=== PATIENT | male | born 1935 | race Caucasian/White ===

== ENCOUNTER 2017-10-04 09:29 | Inpatient (IN) | payer OTHER, BC ==
[~2017-10-04] VITALS: Ht 175.3 cm; Wt 73.8 kg
--- NOTE | ~2017-10-04 | PLAN ---
[facility] [place] [address] REHAB UNIT PLAN OF CARE Name: DEVI HARRISON Room #: 506-1 ADM IN M.R.#: [id number] Admission: 10/04/17 Attend Phys: Masoud Garcia MD Discharge: Date of : 36 Report #: [id number] THIS REPORT FOR: //name// CC: Masoud Garcia [facility] unknown DATE OF SERVICE: 10/06/2017 SUBJECTIVE: The patient is seen back today in followup. He was in no distress. Temperature 36.6, pulse 97, respirations 20, blood pressure 112/66. His diabetes is being monitored, his Mchugh catheter drainage. He has been working in therapies. Transfers are max assist. Bed wheelchair mod assist utilizing the sliding board. In occupational therapy, lower body dressing is max assist. He has mild comprehensive deficits. ASSESSMENT: 1. Right below knee amputation for osteomyelitis. 2. Diabetic peripheral neuropathy. 3. Diabetes mellitus type 2. 4. Chronic Mchugh catheter usage premorbidly. 5. Hypertension. 6. Hyperlipidemia. 7. Depression, on Cymbalta. 8. Deep vein thrombosis prophylaxis, on Lovenox. PLAN: The overall plan of care is based on the preadmission screen, post-admission physician evaluation and information garnered from therapy assessments. 1. Estimated length of stay is probably at least 2-3 weeks pending progress. 2. Medical prognosis is reasonably good. 3. Anticipated interventions includes the interdisciplinary acute inpatient rehabilitation program with the goal maximizing his functional independence, he can hopefully return back to his prior living situation. PT, OT and speech are involved as well as rehabilitation nursing assisting regarding medication management, skin care prophylaxis, bowel and bladder issues and nursing education. We will have case management involved as well as the rehab therapy team and the furniture sales consultant physicians. 4. Anticipated functional outcomes would be to hopefully get him modified independent at least at the walker level, so that he can return back to the home setting. 5. Discharge destination would be back to the house with his daughter. [address] [address] REHAB UNIT PLAN OF CARE Name: ZENA HARRISONL Room #: 506-1 ADM IN M.R.#: [id number] Admission: 10/04/17 Attend Phys: Masoud Garcia MD Discharge: Date of : 36 Report #: [id number] 6. Expected therapy by discipline includes PT, OT and speech 1 hour per day each five days a week throughout the duration of the acute inpatient stay. <ELECTRONICALLY SIGNED> By: Masoud Garcia MD 10/10/17 1510 [id number] Masoud Garcia MD /PMT
--- NOTE | ~2017-10-04 | HC ---
[facility] [place] [address] CONSULTATION Name: DEVI HARRISON Room #: 506-1 ADM IN M.R.#: [id number] Admission: 10/04/17 Attend Phys: Masoud Garcia MD Discharge: Date of : 36 Report #: [id number] THIS REPORT FOR: //name// CC: Masoud Garcia FAM unknown NEUROPSYCHOLOGY CONSULTATION AGE: 82. LOCATION: Admitted to the rehabilitation unit on 10/04/2017. HELPER MARBLE FINISHER: Masoud Kirk, PhD REASON FOR CONSULTATION: To provide information in support of planning of a comprehensive rehabilitation program. HISTORY OF PRESENT ILLNESS: The patient was hospitalized recently at [facility] due to failure to heal of wounds on his right foot. He subsequently underwent a [id number] amputation on 09/27/2017, and on 10/04/2017 was admitted to the rehabilitation unit at [place] for comprehensive rehabilitation. PROCEDURES: Included a review of records, consultation with unit staff, mini mental status examination and clinical interview, FINDINGS: When interviewed, the patient was found to be an alert, pleasant gentleman who readily agreed to speak with this resume writer. He was aware of his current situation and reported himself to be in relatively good spirits, stating that he is sorry to have lost his leg, but believes that he just has to "go with it." The patient's memory was noted to be very spotty. He remembered that his 3 years ago, but when trying to state what she of, he only was able to point at his head. He remembered that he was in the [employer] as a young man for a specific number of years, months, and days, but could not recall the name of the company that he worked for, for the last 18 years of his career. He was able to recall that he has 2 daughters, but could not state the exact number of grandchildren, which he has. On the mini mental status examination, he scored in the severely impaired range of mental status, with impaired recall and limited orientation. That being said, his plan to return to his daughter's home where he has extensive family, social and practical support appears to be realistic, as he has minimal demand for managing his affairs independently in his living setting. CONCLUSION AND RECOMMENDATIONS: The claimant appears to have some level of dementia, though general awareness of his situation and surroundings, and he is [facility] [address] [place] [address] CONSULTATION Name: DEVI HARRISON Room #: 506-1 [facility] IN M.R.#: [id number] Admission: 10/04/17 Attend Phys: Masoud Garcia MD Discharge: Date of : 36 Report #: [id number] outspokenly committed to his hope of returning home to live with family. It is recommended that compensation for memory issues, such as writing down things he wishes to follow up on our recall be addressed. <ELECTRONICALLY SIGNED> By: Masoud Kirk, PhD 10/17/17 1242 [id number] Masoud Kirk PhD /karlo
--- NOTE | ~2017-10-04 | H ---
[facility] [place] [address] HISTORY AND PHYSICAL Name: DEVI HARRISON Room #: 506-1 ADM IN M.R.#: [id number] Admission: 10/04/17 Attend Phys: Masoud Garcia MD Discharge: Date of : 36 Report #: [id number] THIS REPORT FOR: //name// CC: Masoud Garcia [facility] unknown DATE OF SERVICE: 10/05/2017 HISTORY AND PHYSICAL/POST-ADMISSION PHYSICIAN EVALUATION HISTORY OF PRESENT ILLNESS: The patient is an 82-year-old male who was admitted from [facility] status post right below-knee amputation for osteomyelitis. He was originally admitted to [facility] with cellulitis. He was continued on IV antibiotics and ended up undergoing a below-knee amputation. Per my review this occurred on 09/27/2017. The patient was monitored postoperatively for blood pressure and blood sugar issues, gradually stabilized and was felt to be ready for transfer for acute in-hospital inpatient rehabilitation. We are now admitting him to the inpatient rehabilitation posey at [facility]. PAST MEDICAL HISTORY: Includes hypertension, hyperlipidemia, peripheral arterial disease, osteoarthritis, BPH, chronic use of Mchugh with previous UTI, diabetic neuropathy. He has type 2 diabetes mellitus. MEDICATIONS: Please see the full medication list. Each of these was individually reconciled and includes vitamins, herbals, and supplements. ALLERGIES: LISTED INFLUENZA VACCINE. FAMILY HISTORY: Positive for congestive heart failure, dementia, and Parkinson's disease. SOCIAL HISTORY: He lives with his daughter in a house. They already have a ramp built. Per his history, there bathroom is accessible. The daughter and her household apparently do a lot of posey work during the summer. REVIEW OF SYSTEMS: Did not offer any current complaints of chest pain, shortness of breath, abdominal discomfort. No focal extremity pain complaints. He does have some distal lower extremity numbness, but was uncertain regarding the diagnosis of a neuropathy, although it is noted in his records. Notes he has had the Mchugh catheter indwelling for more than a year and apparently has problems with incontinence without it. PHYSICAL EXAMINATION: GENERAL: He is a pleasant 82-year-old male in no obvious distress. VITAL SIGNS: Last recorded temperature is 97.5, pulse 88, respirations 16, [facility] [address] [place] [address] HISTORY AND PHYSICAL Name: DEVI HARRISON Room #: [address] [place] [address] IN .R.#: [id number] Admission: 10/04/17 Attend Phys: Masoud Garcia MD Discharge: Date of : 36 Report #: [id number] blood pressure 93/53. He is alert, oriented, appears to be a good historian. HEENT: Facies are symmetric. CHEST: Sounded clear to auscultation. CARDIOVASCULAR: Regular rate and rhythm. ABDOMEN: Bowel sounds positive, nontender. GENITOURINARY AND RECTAL: Deferred. EXTREMITIES: He has functional range of motion of both upper extremities. It appears to have some hand intrinsic wasting, but otherwise I would note that strength is probably a grade 4+/5. DTRs are trace to 1. In his lower extremities, he has the right below-knee amputation. Dressing appears dry. He has good extension of the knee. He is able to lift that leg up with proximal strength probably at least to grade 3+ to 4-/5. Left lower extremity reveals functional range of motion, no breakdown that I can see over the foot or ankle. Strength is a grade 4 to 4-/5. DTRs are trace to 1. No focal calf swelling. He does have decreased distal sensation consistent with his noted peripheral neuropathy. He has been mod assist with basic transfers prior to coming to the rehab posey. ASSESSMENT: An 82-year-old male with the following problem list: 1. Right below knee amputation for osteomyelitis. 2. Diabetic peripheral neuropathy. 3. Diabetes mellitus type 2. 4. Chronic Mchugh catheter usage premorbidly. 5. Hypertension. 6. Hyperlipidemia. 7. Depression. He is on Cymbalta. 8. Deep vein thrombosis. He is on Lovenox. 9. Functional mobility and ADL deficits. PLAN: The patient is admitted for acute in-hospital inpatient rehabilitation. From a postadmission physician evaluation perspective, there are no relevant changes since the preadmission screening. Please see the above review of prior and current medical and functional conditions and comorbidities. Please see the patient's previous and current functional status. As far as risk of complications, he has the multiple medical comorbidities as noted above. The initial plan of care involves the interdisciplinary acute inpatient rehabilitation program with the goal of maximizing the patient's functional independence so that he can hopefully return back to his prior living situation. Measurable functional goals would be for him to become modified independent with transfers, mobility, ADLs, at least at the wheelchair/walker level, so he can return back home with family. Prognosis is reasonably good with estimated length of stay probably at least 10 days to 2 weeks and likely longer depending upon his functional deficits and gains. The patient meets diagnostic criteria for an acute in-hospital inpatient rehabilitation stay. He meets medical necessity criteria and we will have the [address] [address] HISTORY AND PHYSICAL Name: DEVI HARRISON Room #: 506-1 ADM IN M.R.#: [id number] Admission: 10/04/17 Attend Phys: Masoud Garcia MD Discharge: Date of : 36 Report #: [id number] professional services consultant physicians continue to follow. He does have the tolerance for therapies and has appropriate discharge goals back to the home setting. <ELECTRONICALLY SIGNED> By: Masoud Garcia MD 10/10/17 1510 [id number] Masoud Garcia MD /[facility]
[2017-10-04 14:00] VITALS: BP 96/51
[2017-10-04] MEDS ORDERED: BENADRYL ITCH28.3 G1 TOP (14:37)
[2017-10-04] MEDS ORDERED: CYMBALTA60 MG PO (14:38)
[2017-10-04] MEDS ORDERED: ENOXAPARIN40 MG/0.1 SUBQ (14:40)
[2017-10-04] MEDS ORDERED: HYDROCODONE-AP1 EAC6 PO (14:41)
[2017-10-04] MEDS ORDERED: NOVOLOG100 UNIT/1 SUBQ ×2 (14:43→14:45)
[2017-10-04] MEDS ORDERED: LEVEMIR SUBQ (14:47)
[2017-10-04] MEDS ORDERED: LEVEMIR100 UNIT/1 SUBQ (14:49)
[2017-10-04] MEDS ORDERED: PROBIOTIC1 EAC1 PO (14:50)
[2017-10-04] MEDS ORDERED: LISINOPRIL10 MG PO (14:51)
[2017-10-04] MEDS ORDERED: METOPROLOL TART25 MG PO (14:53)
[2017-10-04] MEDS ORDERED: MIDODRINE HCL 55 M1 PO (14:55)
[2017-10-04] MEDS ORDERED: AMBIEN 5 MG TABL5 M1 PO (14:56)
[2017-10-04] MEDS ORDERED: LIPITOR10 MG PO (14:59)
[2017-10-04] MEDS ORDERED: AMARYL4 MG PO (14:59)
[2017-10-04] MEDS ORDERED: ALBUTEROL2.5 MG/31 INH (15:02)
[2017-10-04] MEDS ORDERED: ASPIRIN81 M2 PO (15:04)
[2017-10-04 16:39] LABS: URINE BILIRUBIN NEGATIVE (Negative); URINE BLOOD TRACE (Negative); URINE CLARITY CLEAR; URINE COLOR YELLOW; URINE GLUCOSE-RANDOM* NEGATIVE (Negative); URINE KETONES NEGATIVE (Negative); URINE NITRITE-REFLEX NEGATIVE (Negative); URINE PROTEIN (DIPSTICK) NEGATIVE (Negative); URINE UROBILINOGEN 0.2 E.U./dl (0.2-1.0)
[2017-10-04 16:42] LABS: URINE LEUKOCYTES-REFLEX 2+ (Negative)
[2017-10-04 16:51] LABS: CASTS None Seen /LPF (None Seen); CRYSTALS None Seen /LPF (None Seen); SQUAMOUS None Seen /LPF (0-3); URINE RBC 0-2 Rare /HPF (0-2); YEAST-REFLEX Present (None Seen)
[2017-10-04 16:52] LABS: BACTERIA-REFLEX 1-9 Few /HPF (None Seen)
[2017-10-04 20:02] VITALS: BP 93/53
[2017-10-05 06:56] LABS: HEMATOCRIT 26.3 % (42.0-52.0); HEMOGLOBIN 8.7 gm/dL (14.0-18.0); MCH 29.1 pg (26.0-34.0); MCHC 33.1 g/dL (28.0-37.0); MCV 87.7 fL (80.0-100.0); RDW 14.8 % (10.5-14.5); WBC 8.2 thou/uL (4.0-11.0)
[2017-10-05 07:09] LABS: CALCIUM 8.8 mg/dL (8.5-10.1); CREATININE 0.8 mg/dL (0.7-1.3); POTASSIUM 4.1 mmol/L (3.5-5.1)
[2017-10-05 14:23] VITALS: BP 114/61
[2017-10-05 22:46] LABS: % SATURATION 16 % (20-39); IRON 42 ug/dL (65-175); TIBC 266 ug/dL (250-450)
[2017-10-05 23:25] LABS: FOLIC ACID 17.3 ng/mL (8.6-58.9)
[2017-10-06 08:00] VITALS: BP 112/66
[2017-10-06 20:31] VITALS: BP 136/57
[2017-10-07 08:00] VITALS: BP 124/60
[2017-10-07 19:52] VITALS: BP 132/70
[2017-10-08 09:00] VITALS: BP 116/51
[2017-10-08 11:37] LABS: HEMATOCRIT 25.8 % (42.0-52.0); HEMOGLOBIN 8.7 gm/dL (14.0-18.0); MCH 29.6 pg (26.0-34.0); MCHC 33.7 g/dL (28.0-37.0); MCV 87.9 fL (80.0-100.0); RBC 2.94 mil/uL (4.50-6.00); RDW 14.3 % (10.5-14.5)
[2017-10-08 11:45] LABS: CALCIUM 8.6 mg/dL (8.5-10.1); MAGNESIUM 2.2 mg/dL (1.8-2.4); POTASSIUM 4.9 mmol/L (3.5-5.1)
[2017-10-08 19:25] VITALS: BP 134/68
[2017-10-09 06:08] LABS: HEMATOCRIT 23.7 % (42.0-52.0); MCH 29.5 pg (26.0-34.0); MCHC 33.7 g/dL (28.0-37.0); MCV 87.3 fL (80.0-100.0); RBC 2.71 mil/uL (4.50-6.00); RDW 14.5 % (10.5-14.5); WBC 7.4 thou/uL (4.0-11.0)
[2017-10-09 06:18] LABS: CALCIUM 8.4 mg/dL (8.5-10.1); CREATININE 0.9 mg/dL (0.7-1.3); MAGNESIUM 2.1 mg/dL (1.8-2.4); POTASSIUM 4.5 mmol/L (3.5-5.1)
[2017-10-09 08:00] VITALS: BP 118/64
[2017-10-09 13:15] VITALS: BP 124/61
[2017-10-09 20:12] VITALS: BP 116/66
[2017-10-10 05:08] LABS: HEMATOCRIT 25.5 % (42.0-52.0); HEMOGLOBIN 8.5 gm/dL (14.0-18.0); MCH 29.1 pg (26.0-34.0); MCHC 33.4 g/dL (28.0-37.0); MCV 87.3 fL (80.0-100.0); RBC 2.92 mil/uL (4.50-6.00); RDW 14.1 % (10.5-14.5)
[2017-10-10 05:17] LABS: CALCIUM 8.8 mg/dL (8.5-10.1); CREATININE 0.9 mg/dL (0.7-1.3); MAGNESIUM 2.1 mg/dL (1.8-2.4); POTASSIUM 4.7 mmol/L (3.5-5.1)
[2017-10-10 08:15] VITALS: BP 140/80
[2017-10-10 19:05] VITALS: BP 132/72
[2017-10-11 04:59] LABS: HEMATOCRIT 26.1 % (42.0-52.0); HEMOGLOBIN 8.7 gm/dL (14.0-18.0); MCH 29.3 pg (26.0-34.0); MCHC 33.5 g/dL (28.0-37.0); MCV 87.4 fL (80.0-100.0); RBC 2.99 mil/uL (4.50-6.00); RDW 14.3 % (10.5-14.5); WBC 7.3 thou/uL (4.0-11.0)
[2017-10-11 05:04] LABS: CALCIUM 8.5 mg/dL (8.5-10.1); CREATININE 0.9 mg/dL (0.7-1.3); MAGNESIUM 2.2 mg/dL (1.8-2.4); POTASSIUM 4.4 mmol/L (3.5-5.1)
[2017-10-11 08:15] VITALS: BP 105/58
[2017-10-11 20:25] VITALS: BP 134/73
[2017-10-12 08:39] VITALS: BP 129/63
[2017-10-12 11:06] VITALS: BP 124/64
[2017-10-12 19:51] VITALS: BP 127/71
[2017-10-13 08:00] VITALS: BP 127/74
[2017-10-13 20:26] VITALS: BP 133/79
[2017-10-14 08:20] VITALS: BP 150/80
[2017-10-14 21:24] VITALS: BP 131/77
[2017-10-15 08:30] VITALS: BP 144/83
[2017-10-15 21:18] VITALS: BP 144/81
[2017-10-16 08:00] VITALS: BP 123/73
[2017-10-16 19:35] VITALS: BP 126/71
[2017-10-17 08:15] VITALS: BP 120/62
[2017-10-17 20:02] VITALS: BP 130/74
[2017-10-18 05:03] LABS: CALCIUM 8.6 mg/dL (8.5-10.1); CREATININE 0.9 mg/dL (0.7-1.3); MAGNESIUM 2.1 mg/dL (1.8-2.4); POTASSIUM 4.5 mmol/L (3.5-5.1)
[2017-10-18 05:27] LABS: HEMATOCRIT 27.6 % (42.0-52.0); HEMOGLOBIN 9.2 gm/dL (14.0-18.0); MCH 29.7 pg (26.0-34.0); MCHC 33.2 g/dL (28.0-37.0); MCV 89.4 fL (80.0-100.0); PLATELET COUNT 210 thou/uL (150-400); RBC 3.08 mil/uL (4.50-6.00); RDW 15.9 % (10.5-14.5); WBC 6.3 thou/uL (4.0-11.0)
[2017-10-18 08:15] VITALS: BP 119/68
[2017-10-18 08:34] LABS: ABSOLUTE NEUTROPHILS 3.2 thou/uL (1.4-8.2); METAMYELOCYTES 1 %; PLATELET ESTIMATE NORMAL
[2017-10-18 20:18] VITALS: BP 110/64
[2017-10-19 08:20] VITALS: BP 134/81
[2017-10-19 20:06] VITALS: BP 140/88
[2017-10-20 07:45] VITALS: BP 119/70
[2017-10-20] MEDS ORDERED: VITAMIN B-12500 MCG PO (08:29)
[2017-10-20] MEDS ORDERED: FLONASE 0.05%50 MCG NASAL (08:29)
[2017-10-20] MEDS ORDERED: NEURONTIN 300M300 M2 PO (08:29)
[2017-10-20] MEDS ORDERED: ERGOCALCIF50000 UNIT PO (08:29)
[2017-10-20] MEDS ORDERED: TYLENOL EXTRA500 MG PO (08:29)
[2017-10-20] MEDS ORDERED: COLACE100 MG PO (08:29)
[2017-10-20] MEDS ORDERED: IRON325 PO (08:29)
[2017-10-20] MEDS ORDERED: ZYRTEC10 M2 PO (08:29)
[2017-10-20] MEDS ORDERED: LEVEMIR SUBQ (08:29)
[2017-10-20 19:52] VITALS: BP 138/79
[2017-10-21 08:17] VITALS: BP 142/82
[2017-10-21 19:48] VITALS: BP 146/80
[2017-10-22 10:22] VITALS: BP 136/72
[2017-10-22 19:24] VITALS: BP 156/78
[2017-10-23 08:20] VITALS: BP 100/70
[2017-10-23 20:03] VITALS: BP 137/82
[2017-10-24 05:23] LABS: HEMATOCRIT 27.9 % (42.0-52.0); HEMOGLOBIN 9.3 gm/dL (14.0-18.0); MCH 29.5 pg (26.0-34.0); MCHC 33.2 g/dL (28.0-37.0); MCV 88.9 fL (80.0-100.0); PLATELET COUNT 176 thou/uL (150-400); RBC 3.14 mil/uL (4.50-6.00); RDW 15.4 % (10.5-14.5); WBC 6.5 thou/uL (4.0-11.0)
[2017-10-24 05:25] LABS: CALCIUM 8.7 mg/dL (8.5-10.1); CREATININE 0.8 mg/dL (0.7-1.3); MAGNESIUM 2.2 mg/dL (1.8-2.4); POTASSIUM 3.9 mmol/L (3.5-5.1)
[2017-10-24 07:47] LABS: ABSOLUTE NEUTROPHILS 3.3 thou/uL (1.4-8.2)
[2017-10-24 07:48] LABS: ANISOCYTOSIS 1+
[2017-10-24 08:30] VITALS: BP 110/70
[2017-10-25 09:00] VITALS: BP 128/72
[2017-10-25 14:15] VITALS: BP 153/73
[2017-10-25 15:15] VITALS: BP 128/69
[2017-10-25 15:46] VITALS: BP 128/69
[2017-10-25 20:00] VITALS: BP 150/85
[2017-10-26 08:00] VITALS: BP 140/70
[2017-10-26 19:51] VITALS: BP 136/68; BP 137/58
[2017-10-27 07:34] VITALS: BP 147/82
== END 2017-10-27 14:02 | DRG 638 ==
PROVIDERS: Internal Medicine; Nurse Practitioner; Physical Medicine & Rehabilitation
DX: E11.69 Type 2 diabetes mellitus with other specified complication (principal); M86.9 Osteomyelitis, unspecified; A04.72 Enterocolitis due to Clostridium difficile, not specified as recurrent; I10 Essential (primary) hypertension; E78.5 Hyperlipidemia, unspecified; M19.90 Unspecified osteoarthritis, unspecified site; E11.51 Type 2 diabetes mellitus with diabetic peripheral angiopathy without gangrene; E11.42 Type 2 diabetes mellitus with diabetic polyneuropathy; F32.9 Major depressive disorder, single episode, unspecified; E11.649 Type 2 diabetes mellitus with hypoglycemia without coma; I95.9 Hypotension, unspecified; R53.81 Other malaise; E55.9 Vitamin D deficiency, unspecified; E53.8 Deficiency of other specified B group vitamins; N40.1 Benign prostatic hyperplasia with lower urinary tract symptoms; R33.8 Other retention of urine; Z89.511 Acquired absence of right leg below knee; Z88.7 Allergy status to serum and vaccine; Z82.49 Family history of ischemic heart disease and other diseases of the circulatory system; Z82.0 Family history of epilepsy and other diseases of the nervous system
CPT/HCPCS: 10112